=== PATIENT | female | born 1940 | race Caucasian/White ===

== ENCOUNTER → 2020-04-03 13:36 | Outpatient (CLI) | payer MEDICARE, OTHER, SELFPAY ==
--- NOTE | 2020-04-03 | DI.ECHO.S_ITS ---
[facility] +---------+ [facility] +---------+ : : [address] : : : : [id number] : : : : Phone: [phone]+ Echocardiogram Report + + :Name: TRACI UNDERWOOD Study Date: 04/03/2020 Height: 65 in : :[facility] Weight: 158 lb : : Gender: Female BSA: 1.8 m2 : :: 1940 Age: 79 yrs BP: 144/78 mmHg: :Reason For Study: ATHEROSCLEROTIC HEART DISEASE : :Ordering Physician: Riccardo Ziegler : :Bela Performed By: Cherelle Yan : :Referring: JACKI CLAUDIO : + + Interpretation Summary The left ventricle is normal in size and wall thickness. The ejection fraction is estimated to be 55-60%. Diastolic parameters suggest a relaxation abnormality of the left ventricle, consistent with probable normal filling pressures. The right ventricle is normal in size and function. The right ventricular systolic pressure is estimated to be at least 30 mmHg based on an estimated right atrial pressure of 15 mm Hg. Both atria are normal in size. There is no significant valvular heart disease. The ascending aorta is mildly enlarged. Procedure: A two-dimensional transthoracic echocardiogram with color flow and Doppler was performed. The study quality was technically adequate. Comparison is made with the echocardiogram of 10/26/2019. The patient was in sinus bradycardia with heart rates between 54 bpm during the exam. Left Ventricle: The left ventricle is normal in size and wall thickness. The ejection fraction is estimated to be 55-60%. Diastolic parameters suggest a relaxation abnormality of the left ventricle, consistent with probable normal filling pressures. Right Ventricle: The right ventricle is normal in size and function. Atria: Both atria are normal in size. There is no Doppler evidence for an interatrial shunt. Mitral Valve: The mitral valve is normal in structure and function. There is trace mitral regurgitation. Aortic Valve: The aortic valve is trileaflet. The aortic valve opens well. No aortic regurgitation is present. Tricuspid Valve: The tricuspid valve is normal in structure and function. There is mild tricuspid regurgitation. The right ventricular systolic pressure is estimated to be at least 30 mmHg based on an estimated right atrial pressure of 15 mm Hg. Pulmonic Valve: The pulmonic valve is normal in structure and function. There is a trace or physiologic amount of pulmonic regurgitation. There is no significant valvular heart disease. Great Vessels: The aortic root is normal size. The ascending aorta is mildly enlarged. 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 This suggests a high right atrial pressure of 15 mm Hg. Pericardium/ Pleura There is no pericardial effusion. There is no pleural effusion. MMode/2D Measurements & Calculations LVIDd: 5.0 cm LVOT diam: 2.1 cm LVIDs: 3.2 cm Ao root diam: 2.9 cm FS: 35.3 % asc Aorta Diam: 3.5 cm EPSS: 0.91 cm Ao Arch Diam (Prox Trans): 2.5 cm IVSd: 0.84 cm LVPWd: 1.0 cm LV ferro. diameter/BSA (cm/m^2): 2.8 LV sys. diameter/BSA (cm/m^2): 1.8 LA A2 area: 16.2 cm2 RA long axis: 5.0 cm LA A4 area: 17.5 cm2 RA area: 14.3 cm2 LA length (vol): 5.1 cm RA vol: 34.5 ml LA vol: 47.6 ml RA : 19.3 ml/m2 LA vol index: 26.6 ml/m2 IVC diam: 2.4 cm RVD1 (basal): 2.6 cm TAPSE: 2.4 cm Doppler Measurements & Calculations Ao V2 max: 128.4 cm/sec LVOT Max Bryce: 79.7 cm/sec Ao V2 mean: 83.2 cm/sec LV V1 max P.5 mmHg Ao max P.6 mmHg LV V1 VTI: 20.8 cm Ao mean P.2 mmHg SYD(I,D): 2.4 cm2 Ao V2 VTI: 31.1 cm SYD(V,D): 2.2 cm2 sev ratio: 0.67 SYD indexed to BSA (cm^2/m^2): 1.3 MV E max bryce: 83.2 cm/sec TR max bryce: 192.2 cm/sec MV A max bryce: 94.0 cm/sec TR max P.8 mmHg MV E/A: 0.89 PA V2 max: 64.6 cm/sec Med Peak E' Bryce: 9.2 cm/sec PA V2 mean: 42.9 cm/sec E/E' med: 9.1 PA mean P.87 mmHg Lat Peak E' Bryce: 8.4 cm/sec E/E' lat: 9.9 E/e' average: 9.5 MV dec time: 0.19 sec SV(LVOT): 73.3 ml Reading Physician:04:08 PM
== END ==
PROVIDERS: Referring Provider Physician Assistant; Visit Provider Physician Assistant
DX: I07.1 Rheumatic tricuspid insufficiency (principal); I25.10 Atherosclerotic heart disease of native coronary artery without angina pectoris; I77.89 Other specified disorders of arteries and arterioles
CPT/HCPCS: 93306